=== PATIENT | female | born 1985 | race Caucasian/White ===

== ENCOUNTER 2017-03-26 19:26 | Outpatient (CLI) | payer OTHER | END 2017-03-26 22:17 | disposition home or self-care (01) | LOC: GENOP 19:26 | DX: O26.893 Other specified pregnancy related conditions, third trimester (principal); R10.9 Unspecified abdominal pain; O42.92 Full-term premature rupture of membranes, unspecified as to length of time between rupture and onset of labor; Z3A.40 40 weeks gestation of pregnancy | CPT/HCPCS: 81001; 83518; G0463 ==

== ENCOUNTER 2017-03-29 04:18 | Inpatient (IN) | payer OTHER ==
[~2017-03-29] VITALS: Ht 149.9 cm; Wt 74.8 kg
[2017-03-29 05:26] LABS: HEMOGLOBIN 8.8 gm/dl (12.3-15.3); RED BLOOD COUNT 3.29 M/UL (4.00-5.10); WHITE BLOOD COUNT 9.5 K/UL (4.5-11.0)
[2017-03-30 03:36] LABS: HEMOGLOBIN 7.2 gm/dl (12.3-15.3)
[2017-03-30] MEDS ORDERED: FERROUS SULFAT325 MG PO (15:23)
[2017-03-30] MEDS ORDERED: NORCO 5-325 TA1 EACH PO (15:24)
[2017-03-30] MEDS ORDERED: IBUPROFEN600 MG PO (15:25)
[2017-03-30] MEDS ORDERED: DOCUSATE SODIU100 MG PO (15:26)
== END 2017-03-30 15:33 | disposition home or self-care (01) | DRG 775 ==
LOC: GENOP 04:18 → OB 05:08
PROVIDERS: Obstetrics & Gynecology; ADMIT Obstetrics & Gynecology
PROC: 10E0XZZ Delivery of Products of Conception, External Approach (ICD-10-PCS; principal; 2017-03-29)
PROC: 0KQM0ZZ Repair Perineum Muscle, Open Approach (ICD-10-PCS; 2017-03-29)
PROC: 3E0234Z Introduction of Serum, Toxoid and Vaccine into Muscle, Percutaneous Approach (ICD-10-PCS; 2017-03-30)
DX: O99.02 Anemia complicating childbirth (principal); O70.1 Second degree perineal laceration during delivery; Z3A.40 40 weeks gestation of pregnancy; Z37.0 Single live birth; Z82.49 Family history of ischemic heart disease and other diseases of the circulatory system; Z83.3 Family history of diabetes mellitus; Z23 Encounter for immunization
CPT/HCPCS: 36415; 82800; 83518; 85014; 85018; 85025; 90715; J2300; J2590; J3430; J7120

== ENCOUNTER → 2020-12-02 | Outpatient (CLI) | payer OTHER ==
[~2020-12-02] MED LIST: DICLEGIS DR 101 EACH PO; DOCUSATE SODIU100 MG PO; FERROUS SULFAT325 MG PO; IBUPROFEN600 MG PO; NORCO 5-325 TA1 EACH PO; PRENATAL VITAM1 EAC3 PO
== END ==
LOC: EXRD 11-26 13:00
DX: R22.1 Localized swelling, mass and lump, neck (principal); R59.1 Generalized enlarged lymph nodes
CPT/HCPCS: 76536

== ENCOUNTER → 2021-01-08 | Outpatient (CLI) | payer OTHER | LOC: RAD 12-26 08:00 | DX: R13.10 Dysphagia, unspecified (principal) | CPT/HCPCS: 74220; 74230; 92611-GN ==

== ENCOUNTER → 2021-01-10 | Outpatient (CLI) | payer OTHER | LOC: US 12-23 10:00 | PROC: 07B13ZX Excision of Right Neck Lymphatic, Percutaneous Approach, Diagnostic (ICD-10-PCS; principal; 2021-01-10) | DX: R22.1 Localized swelling, mass and lump, neck (principal) ==